=== PATIENT | female | born 1990 | race Caucasian/White ===

== ENCOUNTER 2016-10-03 00:27 | Emergency (ER) | payer OTHER ==
[~2016-10-03] VITALS: Ht 177.8 cm; Wt 68.0 kg
--- NOTE | 2016-10-03 00:36 | NUR ---
pt came into ER with assistance of friend, c/o rt foot pain s/p fall in second stairway... pt is alert, oriented x 4, no resp distress noted or reported upon assessment... md at bedside...
[2016-10-03] MEDS ORDERED: LAMO200T2 PO (00:56)
[2016-10-03] MEDS ORDERED: HYDROCODONE/APAP 5-325MG TABLET PO ONE (01:00)
[2016-10-03] MEDS ORDERED: NALT50TA PO (01:06)
[2016-10-03] MEDS ORDERED: QUET300T2 PO (01:07)
[2016-10-03] MEDS ORDERED: GABA-534 PO (01:07)
[2016-10-03] MEDS ORDERED: HYDROCODONE/APAP 5-325MG TABLET ONE (01:25)
--- NOTE | 2016-10-03 01:30 | NUR ---
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
[2016-10-03] MEDS ORDERED: ONDANSETRON 4 MG/2 ML VIAL ONE (02:10)
[2016-10-03] MEDS ORDERED: MORPHINE SULFATE 4 MG/1 ML DISP.SYRIN ONE (02:10)
[2016-10-03] MEDS ORDERED: MORPHINE SULFATE 4 MG/1 ML DISP.SYRIN IM ONE (02:15)
[2016-10-03] MEDS ORDERED: ONDANSETRON 4 MG/2 ML VIAL IM ONE (02:15)
--- NOTE | 2016-10-03 02:59 | NUR ---
Patient discharged to home in stable conditon. Written and verbal after care instructions given. Patient verbalizes understanding of instructions. pt walked out of ER unassisted with belonings and friend at side...
== END 2016-10-03 03:18 | disposition home or self-care (01) ==
LOC: ER 00:38
DX: S93.601A Unspecified sprain of right foot, initial encounter (principal); F31.9 Bipolar disorder, unspecified; F10.20 Alcohol dependence, uncomplicated; Z88.2 Allergy status to sulfonamides; W18.40XA Slipping, tripping and stumbling without falling, unspecified, initial encounter; Y93.89 Activity, other specified; Y99.8 Other external cause status; Y92.89 Other specified places as the place of occurrence of the external cause
CPT/HCPCS: 73630; 96372 ×2; 99284; A4663; J2270; J2405